=== PATIENT | female | born 1930 | race Two or more races ===

== ENCOUNTER 2016-08-14 11:05 | Emergency (ER) | payer MEDICARE, MEDICAID ==
[~2016-08-14] VITALS: Ht 165.1 cm; Wt 63.5 kg
[~2016-08-14 11:05] MED LIST: BUPR100T4 PO; CHOL20004 PO; DICL100G3 TOP; DOCU100C22 PO; ERGO50003 PO; FURO-145 PO; INSU100V10 SQ; LISI40TA4 PO; MEMA5TAB15 PO; METF10002 PO; METF500T4 PO; NYST5ORA TOP; RISP0.253 PO; RISP1TAB7 PO; SENN8.6T6 PO; SIMV40TA5 PO; [UNRECOGNIZED DRUG - CODE] PO
[2016-08-14 11:44] LABS: BASOPHILS % (AUTO) 0.7 % (0.0-2.0); DIFF TOTAL % 100 %; EOSINOPHILS # (AUTO) 0.1 /CMM (0.0-0.7); EOSINOPHILS % (AUTO) 1.6 % (0.0-6.0); HEMATOCRIT 31 % (33-45); HEMOGLOBIN 10.4 g/dL (11.5-14.8); LYMPHOCYTES # (AUTO) 2.1 /CMM (0.8-4.8); LYMPHOCYTES % (AUTO) 31.2 % (20.0-44.0); MEAN CORPUSCULAR HEMOGLOBIN 31 PG (26.0-33.0); MEAN CORPUSCULAR HGB CONC 33 g/dl (31.0-36.0); MEAN CORPUSCULAR VOLUME 92 fL (82-100); MONOCYTES # (AUTO) 0.5 /CMM (0.1-1.30); MONOCYTES % (AUTO) 7.8 % (2.0-12.0); NEUTROPHILS # (AUTO) 4.1 /CMM (1.8-8.9); NEUTROPHILS % (AUTO) 58.7 % (43.0-81.0); PLATELET COUNT (AUTO) 164 /CMM (150-450); RED BLOOD CELL COUNT(AUTO) 3.38 MIL/uL (4.0-5.2); WHITE BLOOD COUNT (AUTO) 6.8 K/uL (4.3-11.0)
[2016-08-14 12:03] LABS: ANION GAP 13 (5-14); CALCIUM, SERUM 9.4 mg/dL (8.5-10.1); CARBON DIOXIDE 28 mmol/L (21-32); CHLORIDE 101 mmol/L (98-107); CREATININE 1.1 mg/dL (0.6-1.3); GLUCOSE 178 mg/dL (74-106); POTASSIUM 4.8 mmol/L (3.5-5.1); SODIUM SERUM 137 mmol/L (136-145); UREA NITROGEN, BLOOD 21 mg/dL (7-18)
[2016-08-14 12:07] LABS: INR 1.02 (0.87-1.13); PROTHROMBIN TIME 10.7 SECS (9.5-12.7)
[2016-08-14 12:08] LABS: ALANINE AMINOTRANSFERASE 22 U/L (12-78); ALBUMIN 3.6 g/dL (3.4-5.0); ASPARTATE AMINOTRANSFERASE 21 U/L (15-37); BILIRUBIN,DIRECT 0.1 mg/dL (0.0-0.2); BILIRUBIN,TOTAL 0.2 mg/dL (0.2-1.0); INDIRECT BILIRUBIN 0.1 mg/dL (0.0-1.1); TOTAL PROTEIN, SERUM 7.2 g/dL (6.4-8.2)
[2016-08-14 12:11] LABS: TROPONIN I < 0.017 ng/mL (0.00-0.056)
[2016-08-14 14:15] VITALS: BP 145/74
== END 2016-08-14 14:16 | disposition home or self-care (01) ==
LOC: ER 11:06
DX: S09.90XA Unspecified injury of head, initial encounter (principal); E78.5 Hyperlipidemia, unspecified; E11.9 Type 2 diabetes mellitus without complications; E03.9 Hypothyroidism, unspecified; I10 Essential (primary) hypertension; F32.9 Major depressive disorder, single episode, unspecified; I70.0 Atherosclerosis of aorta; R51 Headache; R91.8 Other nonspecific abnormal finding of lung field; R79.1 Abnormal coagulation profile; Z79.82 Long term (current) use of aspirin; Z79.4 Long term (current) use of insulin; Z88.0 Allergy status to penicillin; W01.198A Fall on same level from slipping, tripping and stumbling with subsequent striking against other object, initial encounter; Y93.89 Activity, other specified; Y92.89 Other specified places as the place of occurrence of the external cause; Y99.9 Unspecified external cause status
CPT/HCPCS: 36415; 70450-TC; 71010-TC; 72125-TC; 80048-TC; 80076-TC; 84484-TC; 85025-TC; 85730-TC; A4606; Z7610

== ENCOUNTER 2016-09-24 13:19 | Inpatient (IN) | payer MEDICARE, MEDICAID ==
[~2016-09-24] VITALS: Ht 152.4 cm; Wt 60.8 kg
[2016-09-24] MEDS ORDERED: IV NS 0.9% 1,000 ML BAG IV ONE (13:30)
[2016-09-24] MEDS ORDERED: IV NS 0.9% 1,000 ML ONE (13:45)
[2016-09-24] MEDS ORDERED: IV SET PRIMARY PUMP SET 1 EA INFUS.SET MC ONE (13:45)
[2016-09-24] MEDS ORDERED: ACETAMINOPHEN 325 MG TABLET ONE (13:45)
[2016-09-24 13:49] LABS: BASOPHILS % (AUTO) 0.4 % (0.0-2.0); DIFF TOTAL % 100 %; EOSINOPHILS # (AUTO) 0.1 /CMM (0.0-0.7); EOSINOPHILS % (AUTO) 1.4 % (0.0-6.0); HEMATOCRIT 34 % (33-45); HEMOGLOBIN 10.8 g/dL (11.5-14.8); LYMPHOCYTES # (AUTO) 1.9 /CMM (0.8-4.8); LYMPHOCYTES % (AUTO) 38.7 % (20.0-44.0); MEAN CORPUSCULAR HEMOGLOBIN 30 PG (26.0-33.0); MEAN CORPUSCULAR HGB CONC 32 g/dl (31.0-36.0); MEAN CORPUSCULAR VOLUME 92 fL (82-100); MONOCYTES # (AUTO) 0.6 /CMM (0.1-1.30); MONOCYTES % (AUTO) 11.8 % (2.0-12.0); NEUTROPHILS # (AUTO) 2.4 /CMM (1.8-8.9); NEUTROPHILS % (AUTO) 47.7 % (43.0-81.0); PLATELET COUNT (AUTO) 131 /CMM (150-450); RED BLOOD CELL COUNT(AUTO) 3.66 MIL/uL (4.0-5.2)
[2016-09-24 13:50] LABS: KETONES,URINE Negative (NEGATIVE); LEUKOCYTE ESTERASE ,URINE Negative (NEGATIVE); PH,URINE 5.5 (5.0-8.0)
[2016-09-24] MEDS ORDERED: ACETAMINOPHEN ES 500 MG TABLET ONE (13:50)
[2016-09-24 13:51] LABS: ADD UA MICROSCOPIC YES
[2016-09-24 13:52] LABS: ADD URINE CULTURE NO
[2016-09-24] MEDS ORDERED: METF500T4 PO (13:54)
[2016-09-24 13:59] LABS: ANION GAP 10 (5-14); CALCIUM, SERUM 9.2 mg/dL (8.5-10.1); CARBON DIOXIDE 29 mmol/L (21-32); CHLORIDE 95 mmol/L (98-107); CREATININE 0.8 mg/dL (0.6-1.3); GLUCOSE 234 mg/dL (74-106); POTASSIUM 4.7 mmol/L (3.5-5.1); SODIUM SERUM 130 mmol/L (136-145); UREA NITROGEN, BLOOD 19 mg/dL (7-18)
[2016-09-24] MEDS ORDERED: ACETAMINOPHEN 325 MG TABLET PO ONE (14:00)
[2016-09-24 14:05] LABS: ALANINE AMINOTRANSFERASE 17 U/L (12-78); ALBUMIN 3.5 g/dL (3.4-5.0); ASPARTATE AMINOTRANSFERASE 18 U/L (15-37); BILIRUBIN,DIRECT 0.1 mg/dL (0.0-0.2); BILIRUBIN,TOTAL 0.2 mg/dL (0.2-1.0); INDIRECT BILIRUBIN 0.1 mg/dL (0.0-1.1); TOTAL PROTEIN, SERUM 7.2 g/dL (6.4-8.2)
[2016-09-24 14:07] LABS: TROPONIN I < 0.017 ng/mL (0.00-0.056)
[2016-09-24 14:30] VITALS: BP 154/72
[2016-09-24 16:00] VITALS: BP 154/72
[2016-09-24] MEDS ORDERED: CEFTRIAXONE 1GM BAG (ER ONLY) 1 GM/50 ML PIGGYBACK IV ONE (16:00)
[2016-09-24] MEDS ORDERED: ACETAMINOPHEN 325 MG TABLET PO PRN (16:00)
[2016-09-24] MEDS ORDERED: ACETAMINOPHEN SUSP 80 MG/0.8 ML BOTTLE PO PRN (16:00)
[2016-09-24] MEDS ORDERED: SIMVASTATIN 40 MG TABLET PO SCH ×2 (16:30→16:37)
[2016-09-24] MEDS ORDERED: SECONDARY IV SET 1 EA INFUS.SET MC ONE (16:53)
[2016-09-24] MEDS: ASPIRIN EC 81 MG TABLET.DR PO SCH (16:53)
[2016-09-24] MEDS: IV NS 0.9% 1,000 ML IV PRN (16:54)
[2016-09-24] MEDS: LISINOPRIL (20MG) 20 MG TABLET PO SCH (16:54)
[2016-09-24] MEDS: METFORMIN 500 MG TABLET PO SCH (16:55)
[2016-09-24] MEDS: CEFTRIAXONE 1 G in IV D5W 50 ML IV SCH (16:58)
[2016-09-24] MEDS: SIMVASTATIN 40 MG TABLET PO SCH (17:51)
[2016-09-24] MEDS: SENNOSIDES 8.6 MG TABLET PO SCH (17:52)
[2016-09-24 18:00] VITALS: BP 154/76
[2016-09-24 20:00] VITALS: BP 158/80
[2016-09-24] MEDS: INSULIN DETEMIR 100 UNIT/ML CARTRIDGE SQ SCH (21:39)
[2016-09-25 07:09] LABS: CALCIUM, SERUM 9.1 mg/dL (8.5-10.1); CREATININE 0.8 mg/dL (0.6-1.3); POTASSIUM 4.1 mmol/L (3.5-5.1)
[2016-09-25 08:00] VITALS: BP_SYST 144; BP_SYST 146; BP_DIAS 78; BP_DIAS 94
[2016-09-25] MEDS: LISINOPRIL (20MG) 20 MG TABLET PO SCH (09:05)
[2016-09-25] MEDS: METFORMIN 500 MG TABLET PO SCH ×2 (09:05→16:42)
[2016-09-25] MEDS: ASPIRIN EC 81 MG TABLET.DR PO SCH (09:05)
[2016-09-25] MEDS: INSULIN DETEMIR 100 UNIT/ML CARTRIDGE SQ SCH ×2 (09:18→21:00)
[2016-09-25] MEDS ORDERED: SECONDARY IV SET 1 EA INFUS.SET MC ONE (11:00)
[2016-09-25] MEDS: Magnesium 1GM/D5W 100ML PREMIX 100 ML IV SCH ×2 (11:11→12:23)
[2016-09-25] MEDS ORDERED: DEXTROSE 50%-WATER 50 ML DISP.SYRIN IV PRN (14:30)
[2016-09-25 16:00] VITALS: BP 148/53
[2016-09-25] MEDS: CEFTRIAXONE 1 G in IV D5W 50 ML IV SCH (16:40)
[2016-09-25] MEDS: IV NS 0.9% 1,000 ML IV PRN (16:42)
[2016-09-25] MEDS: BLOOD SUGAR DIAGNOSTIC 1 EACH STRIP IN SCH ×2 (16:42→23:47)
[2016-09-25] MEDS: INSULIN ASPART NOVOLOG 100 UNIT/ML CARTRIDGE SQ PRN (16:53)
[2016-09-25] MEDS: SIMVASTATIN 40 MG TABLET PO SCH (17:29)
[2016-09-25] MEDS: SENNOSIDES 8.6 MG TABLET PO SCH (17:29)
[2016-09-25 18:00] VITALS: BP 148/53
[2016-09-25 18:18] LABS: BASOPHILS % (AUTO) 0.6 % (0.0-2.0); DIFF TOTAL % 100 %; EOSINOPHILS # (AUTO) 0.1 /CMM (0.0-0.7); EOSINOPHILS % (AUTO) 1.5 % (0.0-6.0); HEMATOCRIT 32 % (33-45); HEMOGLOBIN 10.4 g/dL (11.5-14.8); LYMPHOCYTES # (AUTO) 2.2 /CMM (0.8-4.8); LYMPHOCYTES % (AUTO) 39.4 % (20.0-44.0); MEAN CORPUSCULAR HEMOGLOBIN 30 PG (26.0-33.0); MEAN CORPUSCULAR HGB CONC 33 g/dl (31.0-36.0); MEAN CORPUSCULAR VOLUME 93 fL (82-100); MONOCYTES # (AUTO) 0.4 /CMM (0.1-1.30); MONOCYTES % (AUTO) 7.6 % (2.0-12.0); NEUTROPHILS # (AUTO) 2.9 /CMM (1.8-8.9); NEUTROPHILS % (AUTO) 50.9 % (43.0-81.0); PLATELET COUNT (AUTO) 126 /CMM (150-450); RED BLOOD CELL COUNT(AUTO) 3.45 MIL/uL (4.0-5.2); WHITE BLOOD COUNT (AUTO) 5.7 K/uL (4.3-11.0)
[2016-09-25 20:00] VITALS: BP 162/67
[2016-09-26 06:35] LABS: CREATININE 0.8 mg/dL (0.6-1.3); POTASSIUM 4.2 mmol/L (3.5-5.1)
[2016-09-26 06:36] LABS: BASOPHILS % (AUTO) 0.6 % (0.0-2.0); DIFF TOTAL % 100 %; EOSINOPHILS # (AUTO) 0.1 /CMM (0.0-0.7); EOSINOPHILS % (AUTO) 1.8 % (0.0-6.0); HEMATOCRIT 33 % (33-45); HEMOGLOBIN 10.7 g/dL (11.5-14.8); LYMPHOCYTES # (AUTO) 2.3 /CMM (0.8-4.8); LYMPHOCYTES % (AUTO) 37.6 % (20.0-44.0); MEAN CORPUSCULAR HEMOGLOBIN 30 PG (26.0-33.0); MEAN CORPUSCULAR HGB CONC 32 g/dl (31.0-36.0); MEAN CORPUSCULAR VOLUME 93 fL (82-100); MONOCYTES # (AUTO) 0.6 /CMM (0.1-1.30); MONOCYTES % (AUTO) 9.2 % (2.0-12.0); NEUTROPHILS # (AUTO) 3.2 /CMM (1.8-8.9); NEUTROPHILS % (AUTO) 50.8 % (43.0-81.0); PLATELET COUNT (AUTO) 141 /CMM (150-450); RED BLOOD CELL COUNT(AUTO) 3.54 MIL/uL (4.0-5.2); WHITE BLOOD COUNT (AUTO) 6.2 K/uL (4.3-11.0)
[2016-09-26] MEDS: BLOOD SUGAR DIAGNOSTIC 1 EACH STRIP IN SCH ×4 (07:56→23:02)
[2016-09-26] MEDS: INSULIN ASPART NOVOLOG 100 UNIT/ML CARTRIDGE SQ PRN ×4 (07:58→23:00)
[2016-09-26 08:00] VITALS: BP 143/70
[2016-09-26] MEDS: LISINOPRIL (20MG) 20 MG TABLET PO SCH (09:27)
[2016-09-26] MEDS: METFORMIN 500 MG TABLET PO SCH ×2 (09:28→17:38)
[2016-09-26] MEDS: ASPIRIN EC 81 MG TABLET.DR PO SCH (09:28)
[2016-09-26] MEDS: INSULIN DETEMIR 100 UNIT/ML CARTRIDGE SQ SCH ×2 (09:29→23:00)
[2016-09-26] MEDS: LamoTRIgine 25 MG TABLET PO SCH (12:00)
[2016-09-26 16:00] VITALS: BP 134/69
[2016-09-26] MEDS ORDERED: buPROPion 100 MG TABLET PO SCH (17:00)
[2016-09-26] MEDS: SIMVASTATIN 40 MG TABLET PO SCH (17:34)
[2016-09-26] MEDS: SENNOSIDES 8.6 MG TABLET PO SCH (17:34)
[2016-09-26] MEDS: CEFTRIAXONE 1 G in IV D5W 50 ML IV SCH (17:35)
[2016-09-26 20:00] VITALS: BP 171/86
[2016-09-26] MEDS ORDERED: BENZTROPINE MESYLATE (1 MG) 1 MG TABLET PO SCH (22:00)
[2016-09-26] MEDS ORDERED: risperiDONE 1 MG TABLET PO SCH (22:00)
[2016-09-27 06:41] LABS: CALCIUM, SERUM 9.1 mg/dL (8.5-10.1); CREATININE 0.8 mg/dL (0.6-1.3)
[2016-09-27] MEDS: BLOOD SUGAR DIAGNOSTIC 1 EACH STRIP IN SCH ×3 (07:19→18:16)
[2016-09-27 08:00] VITALS: BP 147/72
[2016-09-27] MEDS: ASPIRIN EC 81 MG TABLET.DR PO SCH (08:40)
[2016-09-27] MEDS: METFORMIN 500 MG TABLET PO SCH ×2 (08:40→18:16)
[2016-09-27] MEDS: LamoTRIgine 25 MG TABLET PO SCH (08:40)
[2016-09-27] MEDS: buPROPion 100 MG TABLET PO SCH ×2 (08:40→14:38)
[2016-09-27] MEDS: LISINOPRIL (20MG) 20 MG TABLET PO SCH (08:40)
[2016-09-27] MEDS: INSULIN DETEMIR 100 UNIT/ML CARTRIDGE SQ SCH (08:41)
[2016-09-27] MEDS: INSULIN ASPART NOVOLOG 100 UNIT/ML CARTRIDGE SQ PRN (12:45)
[2016-09-27 16:00] VITALS: BP 115/67
[2016-09-27] MEDS: CEFTRIAXONE 1 G in IV D5W 50 ML IV SCH (16:46)
[2016-09-27] MEDS: SIMVASTATIN 40 MG TABLET PO SCH (18:16)
[2016-09-27] MEDS: SENNOSIDES 8.6 MG TABLET PO SCH (18:16)
== END 2016-09-27 19:30 | DRG 689 ==
LOC: ER 13:23 → MEDSG2 14:44
PROVIDERS: ADMIT Internal Medicine; ATTEND Internal Medicine
DX: N39.0 Urinary tract infection, site not specified (principal); G93.40 Encephalopathy, unspecified; F02.81 Dementia in other diseases classified elsewhere, unspecified severity, with behavioral disturbance; R64 Cachexia; R10.9 Unspecified abdominal pain; G30.9 Alzheimer's disease, unspecified; E78.5 Hyperlipidemia, unspecified; E11.9 Type 2 diabetes mellitus without complications; I25.10 Atherosclerotic heart disease of native coronary artery without angina pectoris; I10 Essential (primary) hypertension; E03.9 Hypothyroidism, unspecified; F29 Unspecified psychosis not due to a substance or known physiological condition; D63.8 Anemia in other chronic diseases classified elsewhere; Z79.82 Long term (current) use of aspirin; Z90.49 Acquired absence of other specified parts of digestive tract; F39 Unspecified mood [affective] disorder; F25.9 Schizoaffective disorder, unspecified; N12 Tubulo-interstitial nephritis, not specified as acute or chronic
CPT/HCPCS: 36415; 71010-TC; 80048-TC; 80061-TC; 80076-TC; 81000-TC; 82962-TC; 83690-TC; 83735-TC; 84100-TC; 84484-TC; 85025-TC; 87040-TC; A4606; J0696; J1815; J3475; J7030; J7060; Z7610

== ENCOUNTER 2016-12-09 10:28 | Emergency (ER) | payer MEDICARE, MEDICAID ==
[~2016-12-09] VITALS: Ht 152.4 cm; Wt 47.6 kg
[~2016-12-09 10:28] MED LIST changes: -BUPR100T4 PO; -CHOL20004 PO; -DICL100G3 TOP; -DOCU100C22 PO; -ERGO50003 PO; -MEMA5TAB15 PO; -METF500T4 PO; -NYST5ORA TOP; -RISP0.253 PO; -RISP1TAB7 PO
--- NOTE | 2016-12-09 10:44 | NUR ---
AIRPLANE COVER MAKER AT BEDSIDE COLLECTED BLOOD SAMPLE
[2016-12-09 10:47] LABS: BASOPHILS % (AUTO) 0.5 % (0.0-2.0); EOSINOPHILS # (AUTO) 0.1 /CMM (0.0-0.7); EOSINOPHILS % (AUTO) 1.4 % (0.0-6.0); HEMATOCRIT 32 % (33-45); HEMOGLOBIN 10.9 g/dL (11.5-14.8); LYMPHOCYTES % (AUTO) 26.7 % (20.0-44.0); MEAN CORPUSCULAR HEMOGLOBIN 31 PG (26.0-33.0); MEAN CORPUSCULAR HGB CONC 34 g/dl (31.0-36.0); MEAN CORPUSCULAR VOLUME 90 fL (82-100); MONOCYTES # (AUTO) 0.7 /CMM (0.1-1.30); NEUTROPHILS # (AUTO) 4.5 /CMM (1.8-8.9); NEUTROPHILS % (AUTO) 62.4 % (43.0-81.0); PLATELET COUNT (AUTO) 139 /CMM (150-450); RED BLOOD CELL COUNT(AUTO) 3.51 MIL/uL (4.0-5.2); WHITE BLOOD COUNT (AUTO) 7.3 K/uL (4.3-11.0)
[2016-12-09 10:57] LABS: CALCIUM, SERUM 9.2 mg/dL (8.5-10.1); CREATININE 0.9 mg/dL (0.6-1.3); POTASSIUM 4.7 mmol/L (3.5-5.1)
--- NOTE | 2016-12-09 11:07 | NUR ---
MED RESPONSE CALLED FOR PT DISCHARGE ETA GIVEN: 20 MINS
--- NOTE | 2016-12-09 11:28 | NUR ---
REPORT GIVEN TO Fransico DYE EMT FOR TRANSPORT TO [facility]
[2016-12-09 11:34] VITALS: BP 155/67
== END 2016-12-09 11:37 | disposition home or self-care (01) ==
LOC: ER 10:30
DX: J02.9 Acute pharyngitis, unspecified (principal); E03.9 Hypothyroidism, unspecified; E11.9 Type 2 diabetes mellitus without complications; E78.5 Hyperlipidemia, unspecified; F32.9 Major depressive disorder, single episode, unspecified; I10 Essential (primary) hypertension; Z79.4 Long term (current) use of insulin; Z79.82 Long term (current) use of aspirin; Z88.0 Allergy status to penicillin
CPT/HCPCS: 36415; 71010; 80048; 85025; 99285; A4606; Z7610

== ENCOUNTER 2017-05-01 15:48 | Inpatient (IN) | payer MEDICARE, MEDICAID ==
[~2017-05-01] VITALS: Ht 162.6 cm; Wt 57.2 kg
[2017-05-01] MEDS ORDERED: IV NS 0.9% 500 ML BAG IV ONE (16:00)
[2017-05-01] MEDS ORDERED: ONDANSETRON HCL/PF 4 MG/2 ML VIAL IVP ONE (16:00)
--- NOTE | 2017-05-01 16:00 | NUR ---
PT TO ED ROOM 03. ABDOMINAL PAIN WITH NAUSEA AND VOMITING X 1 DAY. A/A/O x 1. VS WNL. SIDE RAIS LUP. HOB ELEVATED. CONECTED TO LEXA. SEEN AND EVALUATED BY ED PROVIDER.
[2017-05-01] MEDS ORDERED: ONDANSETRON HCL/PF 4 MG/2 ML VIAL ONE (16:21)
[2017-05-01 16:27] LABS: APPEARANCE,URINE CLOUDY (CLEAR); BILIRUBIN,URINE NEGATIVE (NEGATIVE); BLOOD, URINE TRACE-INTA Ery/uL (NEGATIVE); COLOR,URINE YELLOW (YELLOW); KETONES,URINE TRACE (NEGATIVE); LEUKOCYTE ESTERASE ,URINE 3+ (NEGATIVE); NITRITE, URINE NEGATIVE (NEGATIVE); PROTEIN,URINE 2+ mg/dl (NEGATIVE); UGLUCOSE NEGATIVE (NEGATIVE)
[2017-05-01] MEDS ORDERED: METF500T4 PO (16:28)
[2017-05-01] MEDS ORDERED: PRAV20TA4 PO (16:28)
[2017-05-01] MEDS ORDERED: BENZ0.5T3 PO (16:28)
[2017-05-01] MEDS ORDERED: INSU100V7 SQ (16:28)
[2017-05-01] MEDS ORDERED: PANT40TA4 PO (16:28)
[2017-05-01] MEDS ORDERED: QUET25TA PO (16:28)
[2017-05-01] MEDS ORDERED: MEMA10TA PO (16:28)
[2017-05-01] MEDS ORDERED: HYDR-4076 PO (16:28)
[2017-05-01] MEDS ORDERED: DOCU-25 PO (16:28)
[2017-05-01] MEDS ORDERED: CHOL400T11 PO (16:28)
[2017-05-01] MEDS ORDERED: TRAM50TA2 PO (16:28)
[2017-05-01] MEDS ORDERED: TRAZ-144 PO (16:28)
[2017-05-01] MEDS ORDERED: CYAN500T4 PO (16:28)
[2017-05-01] MEDS ORDERED: ACET-868 PO (16:28)
[2017-05-01 16:30] LABS: BASOPHILS % (AUTO) 0.3 % (0.0-2.0); CALCIUM, SERUM 9.6 mg/dL (8.5-10.1); CARBON DIOXIDE 28 mmol/L (21-32); CHLORIDE 102 mmol/L (98-107); EOSINOPHILS # (AUTO) 0.1 /CMM (0.0-0.7); EOSINOPHILS % (AUTO) 1.1 % (0.0-6.0); GLUCOSE 117 mg/dL (74-106); HEMATOCRIT 34 % (33-45); HEMOGLOBIN 11.3 g/dL (11.5-14.8); LYMPHOCYTES # (AUTO) 2.6 /CMM (0.8-4.8); LYMPHOCYTES % (AUTO) 32.7 % (20.0-44.0); MEAN CORPUSCULAR HEMOGLOBIN 29 PG (26.0-33.0); MEAN CORPUSCULAR HGB CONC 33 g/dl (31.0-36.0); MEAN CORPUSCULAR VOLUME 88 fL (82-100); MONOCYTES # (AUTO) 0.6 /CMM (0.1-1.30); MONOCYTES % (AUTO) 8.1 % (2.0-12.0); NEUTROPHILS # (AUTO) 4.5 /CMM (1.8-8.9); NEUTROPHILS % (AUTO) 57.8 % (43.0-81.0); PLATELET COUNT (AUTO) 143 /CMM (150-450); POTASSIUM 3.8 mmol/L (3.5-5.1); RDW COEFFICIENT OF VARIATION 14.7 (11.5-15.0); RED BLOOD CELL COUNT(AUTO) 3.84 MIL/uL (4.0-5.2); SODIUM SERUM 139 mmol/L (136-145); UREA NITROGEN, BLOOD 19 mg/dL (7-18); WHITE BLOOD COUNT (AUTO) 7.9 K/uL (4.3-11.0)
[2017-05-01 16:31] LABS: RBC,URINE 0-2 /HPF (0-2)
[2017-05-01 16:32] LABS: BACTERIA,URINE Moderate /HPF (None Seen); SQUAMOUS EPITHELIAL CELL,UR Few /HPF (None Seen); WBC,URINE 21-50 /HPF (0-3)
[2017-05-01 16:35] LABS: ALANINE AMINOTRANSFERASE 17 U/L (12-78); ALBUMIN 3.8 g/dL (3.4-5.0); ALKALINE PHOSPHATASE 102 U/L (46-116); ASPARTATE AMINOTRANSFERASE 21 U/L (15-37); BILIRUBIN,DIRECT 0.1 mg/dL (0.0-0.2); BILIRUBIN,TOTAL 0.3 mg/dL (0.2-1.0); LIPASE 128 U/L (73-393); TOTAL PROTEIN, SERUM 7.8 g/dL (6.4-8.2)
[2017-05-01 16:39] LABS: TROPONIN I < 0.017 ng/mL (0.00-0.056)
[2017-05-01] MEDS ORDERED: CT SWABBABLE VALVE TRANS SET 1 EA INFUS.SET MC ONE (16:51)
[2017-05-01] MEDS ORDERED: IOHEXOL-300 100 ML VIAL IV ONE (16:51)
[2017-05-01] MEDS ORDERED: IV NS 0.9% 250 ML IV ONE (16:51)
[2017-05-01] MEDS ORDERED: LEVOFLOXACIN 750 MG /D5W 150ML 150 ML IV ONE ×2 (17:30)
--- NOTE | 2017-05-01 17:48 | NUR ---
PAGED DR DAVIS.
--- NOTE | 2017-05-01 18:04 | NUR ---
ms room 327-2
--- NOTE | 2017-05-01 18:15 | NUR ---
REPORT GIVEN TO NURSE PORRAS MS 327-2 FOR TOBIAS.
--- NOTE | 2017-05-01 18:22 | NUR ---
JUSTIN DAVIS [phone] OPT 1, 7,
--- NOTE | 2017-05-01 19:05 | NUR ---
RN NOTES PT ADMITTED TO UNIT @ 1845H VIA RNEY ALERT AND ORIENTED X2, VERBALLY RESPONSIVE WITH NO COMPLAINTS OF ABDOMINAL PAIN , N & v AT THIS TIME. PT WITH CHIEF COMPLAINTS OF ABDOMINAL PAIN AND N &V X 1 DAY WITH SIGNIFICANT DIAGNOSIS OF DEMENTIA, HTN, HYPERLIPEDEMIA, DM AND HYPOTHYROIDISM. PT ON ROOM AIR, BREATHING EVEN WITH NO SOB NOTED. PT HAS RIGHT WRIST G#18 PIV INTACT AND PATENT. V/S TAKEN AND REPORTED TO ASSISTANT ENGINEER NURSE FOR THE RESULTS. SKIN IS INTACT WITH HEMATOMA NOTED TO LEFT HAND. PLACED BED AT LOWEST POSITION AND LOCKED WITH SIDERAILS UP X 2. CALL LIGHT WITHIN REACH. MD MADE AWARE OF PT'S ADMISSION TO UNIT. ORDERS TO FOLLOW-UP. ENDORSED TO ASSISTANT ENGINEER NURSE TO CONTINUE WITH ADMISSION PROCESS.
[2017-05-01 19:35] VITALS: BP 145/85
[2017-05-01 20:00] VITALS: BP 164/82
--- NOTE | 2017-05-01 20:00 | NUR ---
RECEIVED PATIENT LAYING IN BED, RECENTLY NEW ADMIT TO THIS UNIT. A & O X 1-2. NO N/V, NO ABDOMINAL PAIN NOTED. IV ACCESS TO RIGHT WRIST, INTACT PATENT. ON PUREE DIET. WILL START ON IV FLUIDS ORDERED. INCONTINENT OF B & BM. BODY ASSESSMENT DONE & DOCUMENTED. TELUGU SPEAKING WITH FORGETFULNESS. BED IN LOW LOCKED POSITION. CALL LIGHT IN PLACE. WILL CONTINUE TO MONITOR CLOSELY FOR ANY CHANGES IN HEALTH CONDITION.
[2017-05-01] MEDS: IV NS 0.9% 1,000 ML IV PRN (22:02)
[2017-05-01] MEDS: ACETAMINOPHEN 325 MG TABLET PO PRN (22:29)
--- NOTE | 2017-05-01 22:29 | NUR ---
MS RN NOTES PATIENT HAD C/O HEADACHE & GENERALIZED BODYACHE, PRN TYLENOL GIVEN ORDERED. WILL REASSESS FO EFFECTIVENESS.
[2017-05-01] MEDS: BENZTROPINE MESYLATE (1 MG) 1 MG TABLET PO SCH (22:35)
[2017-05-01] MEDS: QUETIAPINE FUMARATE 25 MG TABLET PO SCH (22:36)
[2017-05-01] MEDS: ATORVASTATIN 10 MG TABLET PO SCH (22:36)
[2017-05-01] MEDS: SENNOSIDES 8.6 MG TABLET PO SCH (22:36)
[2017-05-01] MEDS: TRAZODONE 50 MG TABLET PO SCH (22:36)
[2017-05-01] MEDS: ENOXAPARIN SODIUM 30 MG/0.3 ML DISP.SYRIN SQ SCH (22:41)
[2017-05-01] MEDS: CEFTRIAXONE 1 G in IV D5W 50 ML IV SCH (22:54)
[2017-05-01] MEDS: INSULIN DETEMIR 100 UNIT/ML CARTRIDGE SQ SCH (23:01)
--- NOTE | 2017-05-02 01:00 | NUR ---
MS RN NOTES PATIENT NOTED TO BE SLEEPING COMFORTABLY IN SEMI PLUMMER POSITION. WILL CONTINUE TO MONITOR.
[2017-05-02 04:00] VITALS: BP 137/63
--- NOTE | 2017-05-02 06:25 | NUR ---
MS RN NOTES PATIENT SLEPT MOST OF THE NIGHT. A & O X 1-2 WITH EPISODES OF CONFUSION. NO C/O ABDOMINAL PAIN, ON BEDREST DUE TO WEAKNESS. NO ACUTE DISTRESS OR DISCOMFORT NOTED. MILD NAUSEA NOTED, ELEVATED HOB & WAS EFFECTIVE. NO N/V NOTED AFTER THAT. IV ACCESS TO RIGHT WRIST, RUNNING WITH NS AT 75 ML/HR. ASSISTED WITH CARE. ALL NEEDS ATTENDED & MET. NO WORSENING SYMPTOMS NOTED. BED IN LOW LOCKED POSITION. CALL LIGHT WITHIN REACH. WILL ENDORSE TO AM SHIFT.
[2017-05-02 07:22] LABS: BASOPHILS % (AUTO) 0.2 % (0.0-2.0); EOSINOPHILS % (AUTO) 0.4 % (0.0-6.0); HEMATOCRIT 31 % (33-45); HEMOGLOBIN 10.3 g/dL (11.5-14.8); LYMPHOCYTES # (AUTO) 3.1 /CMM (0.8-4.8); LYMPHOCYTES % (AUTO) 32.3 % (20.0-44.0); MEAN CORPUSCULAR HEMOGLOBIN 30 PG (26.0-33.0); MEAN CORPUSCULAR HGB CONC 33 g/dl (31.0-36.0); MEAN CORPUSCULAR VOLUME 89 fL (82-100); MONOCYTES # (AUTO) 0.7 /CMM (0.1-1.30); MONOCYTES % (AUTO) 7.2 % (2.0-12.0); NEUTROPHILS # (AUTO) 5.8 /CMM (1.8-8.9); NEUTROPHILS % (AUTO) 59.9 % (43.0-81.0); PLATELET COUNT (AUTO) 118 /CMM (150-450); RDW COEFFICIENT OF VARIATION 14.6 (11.5-15.0); RED BLOOD CELL COUNT(AUTO) 3.49 MIL/uL (4.0-5.2); WHITE BLOOD COUNT (AUTO) 9.7 K/uL (4.3-11.0)
--- NOTE | 2017-05-02 07:30 | NUR ---
RN OPENING NOTES RECEIVE PT. IN BED A&OX1-2, CONFUSED. BREATHING UNLABORED AND EVENLY ON ROOM AIR. NO S/S OF ACUTE DISTRESS. IV FLUIDS RUNNING AT 75 ML/HR. BED IS IN LOWEST LOCKED POSITION, 2 SIDE RAILS UP, AND INSTRUCTED PT. TO USE CALL LIGHT WITHIN REACH. WILL CONTINUE TO ASSESS AND MONITOR.
[2017-05-02 07:31] LABS: CALCIUM, SERUM 8.7 mg/dL (8.5-10.1); CARBON DIOXIDE 25 mmol/L (21-32); CHLORIDE 104 mmol/L (98-107); CREATININE 1.1 mg/dL (0.6-1.3); GLUCOSE 107 mg/dL (74-106); POTASSIUM 4.9 mmol/L (3.5-5.1); SODIUM SERUM 137 mmol/L (136-145); UREA NITROGEN, BLOOD 19 mg/dL (7-18)
[2017-05-02 08:00] VITALS: BP 112/61
[2017-05-02] MEDS: PANTOPRAZOLE 40 MG TABLET.DR PO SCH (08:39)
[2017-05-02] MEDS: METFORMIN 500 MG TABLET PO SCH ×2 (09:00→18:09)
[2017-05-02] MEDS ORDERED: TRAMADOL HCL 50 MG TABLET PO PRN (09:00)
[2017-05-02] MEDS: CHOLECALCIFEROL (VITAMIN D 3) 400 UNIT TABLET PO SCH (09:00)
[2017-05-02] MEDS: LISINOPRIL (20MG) 20 MG TABLET PO SCH (09:00)
[2017-05-02] MEDS: CYANOCOBALAMIN 500 MCG TABLET PO SCH (09:00)
[2017-05-02] MEDS: BENZTROPINE MESYLATE (1 MG) 1 MG TABLET PO SCH ×2 (09:00→18:09)
[2017-05-02] MEDS: MEMANTINE HCL 5 MG TABLET PO SCH (09:00)
[2017-05-02] MEDS: ASPIRIN EC 81 MG TABLET.DR PO SCH (09:00)
[2017-05-02] MEDS ORDERED: BENZTROPINE MESYLATE (1 MG) 1 MG TABLET PO SCH (09:00)
[2017-05-02] MEDS ORDERED: ACETAMINOPHEN 325 MG TABLET PO PRN (09:00)
--- NOTE | 2017-05-02 10:22 | NUR ---
RN NOTES PT. PO MEDICATIONS WAS NOT ADMINISTERED DUE TO PT. AWAITING A SWALLOW EVALUATION.
[2017-05-02] MEDS: INSULIN DETEMIR 100 UNIT/ML CARTRIDGE SQ SCH ×2 (10:37→21:34)
[2017-05-02] MEDS: TRAMADOL HCL 50 MG TABLET PO PRN (12:06)
[2017-05-02] MEDS: IV NS 0.9% 1,000 ML IV PRN (13:36)
[2017-05-02 16:00] VITALS: BP 116/58
--- NOTE | 2017-05-02 16:52 | NUR ---
Patient resides at [facility] [phone]. Per Leonela at the [facility], patient ambulates with her wheelchair as the walker, she requires min-mod assist with adl's. She is currently on service with [facility] [phone]. Current plan is to return to the [facility] once discharge. Addendum: 05/02/17 at 1715 by TAWANNA MARTELL RN Amended: Links added.
--- NOTE | 2017-05-02 19:20 | NUR ---
MS/RN NOTES RECEIVED PT. LYING IN BED. AWAKE, ALERT AND ORIENTED X 1-2 WITH PERIODS OF CONFUSION NOTED. BREATHING EVEN AND UNLABORED ON ROOM AIR. NO SOB, RESPIRATORY DISTRESS OR COMPLAINTS OF PAIN NOTED AT THIS TIME. PT. WITH RIGHT WRIST 18 GAUGE PERIPHERAL IV PRESENT, PATENT AND INTACT ADMINISTERING TO PT. NS @ 75 ML/HR. BED LOCKED AND IN LOWEST POSITION. SIDE RAILS UP X3, BED ALARM ON, CALL LIGHT WITHIN REACH, WILL CONTINUE TO MONITOR.
--- NOTE | 2017-05-02 19:45 | NUR ---
RN CLOSING NOTES PT. IN BED A&OX1-2, CONFUSED. BREATHING UNLABORED AND EVENLY ON ROOM AIR. NO S/S OF ACUTE DISTRESS. IV FLUIDS NEAR BED SIDE. BED IS IN LOWEST LOCKED POSITION, 2 SIDE RAILS UP, AND INSTRUCTED PT. TO USE CALL LIGHT WITHIN REACH. WILL ENDORSE REPORT TO NURSE.
[2017-05-02 20:00] VITALS: BP 111/51
[2017-05-02] MEDS: ENOXAPARIN SODIUM 30 MG/0.3 ML DISP.SYRIN SQ SCH (21:33)
[2017-05-02] MEDS: ATORVASTATIN 10 MG TABLET PO SCH (21:34)
[2017-05-02] MEDS: QUETIAPINE FUMARATE 25 MG TABLET PO SCH (21:34)
[2017-05-02] MEDS: TRAZODONE 50 MG TABLET PO SCH (21:34)
[2017-05-02] MEDS: SENNOSIDES 8.6 MG TABLET PO SCH (21:35)
[2017-05-02] MEDS: CEFTRIAXONE 1 G in IV D5W 50 ML IV SCH (21:35)
[2017-05-02] MEDS ORDERED: SENNOSIDES 8.6 MG TABLET PO SCH (22:00)
[2017-05-02] MEDS ORDERED: PRAVASTATIN SODIUM 20 MG TABLET PO SCH (22:00)
[2017-05-02] MEDS ORDERED: QUETIAPINE FUMARATE 25 MG TABLET PO SCH (22:00)
[2017-05-02] MEDS ORDERED: TRAZODONE 50 MG TABLET PO SCH (22:00)
--- NOTE | 2017-05-03 06:12 | NUR ---
MS/RN NOTES PT. IS LYING IN BED RESTING. BREATHING EVEN AND UNLABORED ON ROOM AIR. NO SOB, RESPIRATORY DISTRESS OR COMPLAINTS OF PAIN NOTED AT THIS TIME. PT. WITH RIGHT WRIST 18 GAUGE PERIPHERAL IV PRESENT, PATENT AND INTACT ADMINISTERING TO PT. NS @ 75 ML/HR. ALL PT. NEEDS MET. ALL DUE MEDICATIONS ADMINISTERED. PT. OFFLOADED, TURNED AND REPOSITIONED Q2H AND NEEDED. BED LOCKED AND IN LOWEST POSITION. SIDE RAILS UP X3, BED ALARM ON, CALL LIGHT WITHIN REACH, WILL ENDORSE TO DAYSHIFT NURSE FOR CONTINUITY OF CARE.
--- NOTE | 2017-05-03 07:30 | NUR ---
received pt. alert and oriented x 3 .no complaints offered,f/c to grv. drainage.vs stable. Addendum: 05/03/17 at 2003 by KATERINA DELUCA RN above info not correct,info to be on different pt.
--- NOTE | 2017-05-03 07:30 | NUR ---
received pt. in am alert and oriented x1-2.
[2017-05-03 08:00] VITALS: BP 131/60
[2017-05-03] MEDS: CHOLECALCIFEROL (VITAMIN D 3) 400 UNIT TABLET PO SCH (10:02)
[2017-05-03] MEDS: METFORMIN 500 MG TABLET PO SCH ×2 (10:02→18:05)
[2017-05-03] MEDS: PANTOPRAZOLE 40 MG TABLET.DR PO SCH (10:02)
[2017-05-03] MEDS: CYANOCOBALAMIN 500 MCG TABLET PO SCH (10:03)
[2017-05-03] MEDS: ASPIRIN EC 81 MG TABLET.DR PO SCH (10:03)
[2017-05-03] MEDS: BENZTROPINE MESYLATE (1 MG) 1 MG TABLET PO SCH ×2 (10:03→18:04)
[2017-05-03] MEDS: MEMANTINE HCL 5 MG TABLET PO SCH (10:03)
[2017-05-03] MEDS: INSULIN DETEMIR 100 UNIT/ML CARTRIDGE SQ SCH ×2 (10:05→20:35)
[2017-05-03] MEDS: LISINOPRIL (20MG) 20 MG TABLET PO SCH (10:13)
[2017-05-03] MEDS: TRAMADOL HCL 50 MG TABLET PO PRN (11:13)
--- NOTE | 2017-05-03 11:13 | NUR ---
given ultram for c/o headache.
[2017-05-03] MEDS: IV NS 0.9% 1,000 ML IV PRN (11:25)
--- NOTE | 2017-05-03 12:00 | NUR ---
pt. placed on low air loss bed. Addendum: 05/03/17 at 2004 by KATERINA DELUCA RN above info incorrect.
--- NOTE | 2017-05-03 13:00 | NUR ---
due to having a bm dressing buttocks chg. again. Addendum: 05/03/17 at 2005 by KATERINA DELUCA RN above info incorrect.
[2017-05-03 16:00] VITALS: BP 120/65
--- NOTE | 2017-05-03 17:30 | NUR ---
dr. marshall in to see pt.
[2017-05-03 20:00] VITALS: BP 133/80
--- NOTE | 2017-05-03 20:00 | NUR ---
MS/RN OPENING NOTES PATIENT IN HOB ELEVATED, RESTING COMFORTABLY IN BED. SKIN WARM TO TOUCH BUT PALE. NO BLEEDING OXYGENATION IN ROOM AIR AT 97%. WILL CONTINUE TO PROVIDE CARE.
[2017-05-03] MEDS: ENOXAPARIN SODIUM 30 MG/0.3 ML DISP.SYRIN SQ SCH (20:43)
[2017-05-03] MEDS: CEFTRIAXONE 1 G in IV D5W 50 ML IV SCH (21:03)
[2017-05-03] MEDS: TRAZODONE 50 MG TABLET PO SCH (21:13)
[2017-05-03] MEDS: ATORVASTATIN 10 MG TABLET PO SCH (21:13)
[2017-05-03] MEDS: QUETIAPINE FUMARATE 25 MG TABLET PO SCH (21:13)
[2017-05-03] MEDS: SENNOSIDES 8.6 MG TABLET PO SCH (21:14)
[2017-05-03 23:16] VITALS: BP 113/66
[2017-05-03] MEDS: ACETAMINOPHEN 325 MG TABLET PO PRN (23:57)
[2017-05-04] MEDS: IV NS 0.9% 1,000 ML IV PRN (06:26)
[2017-05-04] MEDS: TRAMADOL HCL 50 MG TABLET PO PRN ×2 (06:34→12:41)
--- NOTE | 2017-05-04 06:34 | NUR ---
ms/rn notes pain observe and verbalized on the head and while being change for adls, observed moaning and grimace to give as needed pain medication [id number] po w/ apple sauce.
--- NOTE | 2017-05-04 06:52 | NUR ---
327-2 PATIENT ABLE TO SLEEP DURING THE NIGHT, PAIN MEDICATION GIVEN PATIENT OBSERVED AND VERBALIZE HEADACHE WHILE BEING CHANGED, PAIN RELIEVE VERBALIZED. ABLE TO TOLERATE MEDICATION W/ APPLE SAUCE. BED ALRM ON FOR SAFETY, WILL ENDORSE TO AM RN FOR TOBIAS.
--- NOTE | 2017-05-04 07:30 | NUR ---
MS/RN OPENING NOTE PATIENT RECEIVED IN BED IN STABLE CONDITION. A/O X 1. NAURUAN SPEAKING. NO SIGNS OF ACUTE DISTRESS. NO COMPLAIN OF PAIN OR DISCOMFORT. ALL NEEDS ATTENDED TO. CALL LIGHT WITHIN REACH. WILL CONTINUE TO MONITOR TO ENSURE SAFETY.
[2017-05-04 08:00] VITALS: BP 162/76
[2017-05-04 08:22] LABS: CALCIUM, SERUM 8.2 mg/dL (8.5-10.1); CARBON DIOXIDE 27 mmol/L (21-32); CHLORIDE 108 mmol/L (98-107); CREATININE 0.8 mg/dL (0.6-1.3); GLUCOSE 105 mg/dL (74-106); SODIUM SERUM 141 mmol/L (136-145); UREA NITROGEN, BLOOD 13 mg/dL (7-18)
[2017-05-04] MEDS: CHOLECALCIFEROL (VITAMIN D 3) 400 UNIT TABLET PO SCH (08:38)
[2017-05-04] MEDS: PANTOPRAZOLE 40 MG TABLET.DR PO SCH (08:39)
[2017-05-04] MEDS: ASPIRIN EC 81 MG TABLET.DR PO SCH (08:39)
[2017-05-04] MEDS: METFORMIN 500 MG TABLET PO SCH ×2 (08:39→16:51)
[2017-05-04] MEDS: MEMANTINE HCL 5 MG TABLET PO SCH (08:40)
[2017-05-04] MEDS: BENZTROPINE MESYLATE (1 MG) 1 MG TABLET PO SCH ×2 (08:40→16:51)
[2017-05-04] MEDS: LISINOPRIL (20MG) 20 MG TABLET PO SCH (08:40)
[2017-05-04] MEDS: CYANOCOBALAMIN 500 MCG TABLET PO SCH (08:40)
[2017-05-04] MEDS: INSULIN DETEMIR 100 UNIT/ML CARTRIDGE SQ SCH ×2 (08:42→21:22)
[2017-05-04 16:00] VITALS: BP 142/61
--- NOTE | 2017-05-04 16:00 | NUR ---
MS/RN SEEN BY DR DAVIS PATIENT SEEN BY DR DAVIS WITH NEW ORDER OF ACCUCHECK BEFORE BREAKFAST WITH NO SLIDING SCALE COVERAGE.
[2017-05-04] MEDS: ACETAMINOPHEN 325 MG TABLET PO PRN (17:58)
--- NOTE | 2017-05-04 18:17 | NUR ---
MS/RN CLOSING NOTE PATIENT IN BED IN STABLE CONDITION. A/O X 2. NO SIGNS OF ACUTE DISTRESS. NO COMPLAIN OF PAIN OF DISCOMFORT. ALL NEEDS ATTENDED TO. CALL LIGHT WITHIN REACH. WILL ENDORSE TO NEXT SHIFT FOR CONTINUITY OF CARE.
[2017-05-04 20:00] VITALS: BP_SYST 137; BP_SYST 156; BP_DIAS 100; BP_DIAS 117
--- NOTE | 2017-05-04 20:36 | NUR ---
MS/RN OPENING NOTES PATIENT IN BED, RESTING COMFORTABLY IN BED, NO PAIN OBSERVED AND VERBALIZED. NO GUARDING. FLUID PROVIDED. SKIN WARM TO TOUCH.WILL CONTINUE TO MONITOR AND PROVIDE CARE.
[2017-05-04 21:05] VITALS: BP 137/117
[2017-05-04] MEDS: CEFTRIAXONE 1 G in IV D5W 50 ML IV SCH (21:13)
[2017-05-04] MEDS: TRAZODONE 50 MG TABLET PO SCH (21:13)
[2017-05-04] MEDS: QUETIAPINE FUMARATE 25 MG TABLET PO SCH (21:13)
[2017-05-04] MEDS: SENNOSIDES 8.6 MG TABLET PO SCH (21:13)
[2017-05-04] MEDS: ATORVASTATIN 10 MG TABLET PO SCH (21:28)
[2017-05-04] MEDS: ENOXAPARIN SODIUM 30 MG/0.3 ML DISP.SYRIN SQ SCH (21:30)
[2017-05-04 22:48] VITALS: BP 137/117
[2017-05-05 04:00] VITALS: BP 116/64
[2017-05-05] MEDS ORDERED: INSULIN REGULAR, HUMAN 100 UNIT/ML 3 ML VIAL SQ PRN (04:30)
[2017-05-05] MEDS ORDERED: DEXTROSE 50%-WATER 50 ML DISP.SYRIN IV PRN (04:30)
[2017-05-05] MEDS: TRAMADOL HCL 50 MG TABLET PO PRN ×2 (05:10→18:49)
--- NOTE | 2017-05-05 05:48 | NUR ---
MS/RN NOTES PAIN MEDICATION GIVEN FOR PATIENT DUE TO GUARDING, GRIMACE AND CRYING WHEN BEING REPOSITIONED AND CHANGED. PROVIDED COMFORT AND WARM BLANKET. WILL CONTINUE MONITORING PATIENT.
--- NOTE | 2017-05-05 06:36 | NUR ---
MS/RN CLOSING NOTES PATIENT IN HOB ELEVATED, RESTING COMFORTABLY IN BED. PROVIDED CARE AND PAIN MANAGEMENT , RESPIRATIONS EVEN AND UNLABORED. MONITORING FOR BM, TOLERATE THICKENED FLUIDS W/ PRUNE JUICE. KEPT SKIN INTACT AND DRY. WILL ENDORSE TO AM RN FOR CONTINUITY OF CARE.
[2017-05-05] MEDS ORDERED: BLOOD SUGAR DIAGNOSTIC 1 EACH STRIP IN ONE (07:30)
[2017-05-05] MEDS ORDERED: BLOOD SUGAR DIAGNOSTIC 1 EACH STRIP IN SCH ×2 (07:30)
[2017-05-05 08:00] VITALS: BP 156/70
--- NOTE | 2017-05-05 08:00 | NUR ---
MS RN NOTES PATIENT IN BED RESTING NO SOB OR ACUTE DISTRESS NOTED. PERIPHERAL IV INTACT PATENT. BED IN LOW LOCKED POSITION. CALL LIGHT WITHIN REACH. WILL CONTINUE TO MONITOR.
[2017-05-05] MEDS: BENZTROPINE MESYLATE (1 MG) 1 MG TABLET PO SCH ×2 (08:40→17:37)
[2017-05-05] MEDS: LISINOPRIL (20MG) 20 MG TABLET PO SCH (08:40)
[2017-05-05] MEDS: ASPIRIN EC 81 MG TABLET.DR PO SCH (08:40)
[2017-05-05] MEDS: CYANOCOBALAMIN 500 MCG TABLET PO SCH (08:40)
[2017-05-05] MEDS: METFORMIN 500 MG TABLET PO SCH ×2 (08:40→17:37)
[2017-05-05] MEDS: CHOLECALCIFEROL (VITAMIN D 3) 400 UNIT TABLET PO SCH (08:41)
[2017-05-05] MEDS: MEMANTINE HCL 5 MG TABLET PO SCH (08:41)
[2017-05-05] MEDS: PANTOPRAZOLE 40 MG TABLET.DR PO SCH (08:47)
[2017-05-05] MEDS: INSULIN DETEMIR 100 UNIT/ML CARTRIDGE SQ SCH (08:50)
[2017-05-05] MEDS: ACETAMINOPHEN 325 MG TABLET PO PRN (12:03)
--- NOTE | 2017-05-05 12:15 | NUR ---
MS RN NOTES PATIENT SEEN AND EVALUATED BY DR. DAVIS ORDERS NOTED AND CARRIED OUT.
[2017-05-05 16:00] VITALS: BP 141/76
--- NOTE | 2017-05-05 18:30 | NUR ---
MS RN NOTES PATIENT DISCHARGED TO SNF IN STABLE CONDITION. NO SOB OR ACUTE DISTRESS NOTED. MD AWARE OF ALL ABNORMAL LABS. DISCHARGE INSTRUCTIONS PROVIDED TO JEANNETTE RN AT SNF. ALL BELONGINGS ACCOUNTED FOR. BELONGING LIST SIGNED BY TWO RNS. ALL BELONGINGS ACCOUNTED FOR. DISCHARGE PROTOCOL FOLLOWED. REPORT GIVEN TO JEANNETTE. PATIENT TRANSPORTED BY EMT.
== END 2017-05-05 19:10 | DRG 871 ==
LOC: ER 15:50 → MED 18:08
PROVIDERS: ADMIT Internal Medicine; ATTEND Internal Medicine
DX: A41.9 Sepsis, unspecified organism (principal); G93.40 Encephalopathy, unspecified; N39.0 Urinary tract infection, site not specified; G30.9 Alzheimer's disease, unspecified; I10 Essential (primary) hypertension; E11.9 Type 2 diabetes mellitus without complications; B96.20 Unspecified Escherichia coli [E. coli] as the cause of diseases classified elsewhere; F02.80 Dementia in other diseases classified elsewhere, unspecified severity, without behavioral disturbance, psychotic disturbance, mood disturbance, and anxiety; D63.8 Anemia in other chronic diseases classified elsewhere; R62.7 Adult failure to thrive; I25.10 Atherosclerotic heart disease of native coronary artery without angina pectoris; Z87.440 Personal history of urinary (tract) infections; Z88.0 Allergy status to penicillin; R79.89 Other specified abnormal findings of blood chemistry; R53.1 Weakness; E03.9 Hypothyroidism, unspecified; E78.5 Hyperlipidemia, unspecified; Z68.21 Body mass index [BMI] 21.0-21.9, adult; Z79.84 Long term (current) use of oral hypoglycemic drugs
CPT/HCPCS: 36415; 71010-TC; 80048-TC; 80076-TC; 81000-TC; 82962-TC; 83605-TC; 83690-TC; 84484-TC; 85025-TC; 87040-TC; 87081-TC; 87086-TC; 87186-TC; 92526; 92611-TC; A4606; J0696; J1650; J1815; J1956; J2405; J7030; J7040; J7050; J7060; Q9967; Z7610

== ENCOUNTER 2017-07-04 21:56 | Inpatient (IN) | payer MEDICARE, OTHER ==
[~2017-07-04] VITALS: Ht 160 cm; Wt 53.3 kg
[~2017-07-04 21:56] MED LIST changes: +ACET-868 PO; +BENZ0.5T3 PO; +CHOL400T11 PO; +CYAN500T4 PO; -FURO-145 PO; -INSU100V10 SQ; +MEMA10TA PO; -METF10002 PO; +METF500T4 PO; +PANT40TA4 PO; +PRAV20TA4 PO; +QUET25TA PO; -SIMV40TA5 PO; +TRAM50TA2 PO; +TRAZ-144 PO
[2017-07-04 22:38] LABS: BASOPHILS % (AUTO) 0.3 % (0.0-2.0); EOSINOPHILS # (AUTO) 0.1 /CMM (0.0-0.7); EOSINOPHILS % (AUTO) 1.3 % (0.0-6.0); HEMATOCRIT 34 % (33-45); HEMOGLOBIN 11.1 g/dL (11.5-14.8); LYMPHOCYTES # (AUTO) 2.2 /CMM (0.8-4.8); LYMPHOCYTES % (AUTO) 26.9 % (20.0-44.0); MEAN CORPUSCULAR HEMOGLOBIN 29 PG (26.0-33.0); MEAN CORPUSCULAR HGB CONC 33 g/dl (31.0-36.0); MEAN CORPUSCULAR VOLUME 89 fL (82-100); MONOCYTES # (AUTO) 0.3 /CMM (0.1-1.30); NEUTROPHILS # (AUTO) 5.4 /CMM (1.8-8.9); NEUTROPHILS % (AUTO) 67.5 % (43.0-81.0); PLATELET COUNT (AUTO) 164 /CMM (150-450); RDW COEFFICIENT OF VARIATION 16.8 (11.5-15.0); RED BLOOD CELL COUNT(AUTO) 3.84 MIL/uL (4.0-5.2)
[2017-07-04 22:58] LABS: INR 0.99 (0.87-1.13); PROTHROMBIN TIME 10.3 SECS (9.5-12.7)
[2017-07-04 23:04] LABS: TROPONIN I < 0.017 ng/mL (0.00-0.056)
[2017-07-04 23:06] LABS: ALANINE AMINOTRANSFERASE 18 U/L (12-78); ALBUMIN 3.3 g/dL (3.4-5.0); ALKALINE PHOSPHATASE 103 U/L (46-116); ASPARTATE AMINOTRANSFERASE 14 U/L (15-37); B-TYPE NATRIURETIC PEPTIDE 1507 PG/ML (0-125); BILIRUBIN,TOTAL 0.2 mg/dL (0.2-1.0); CALCIUM, SERUM 9.8 mg/dL (8.5-10.1); CARBON DIOXIDE 27 mmol/L (21-32); CHLORIDE 98 mmol/L (98-107); CREATININE 1.1 mg/dL (0.6-1.3); POTASSIUM 4.9 mmol/L (3.5-5.1); SODIUM SERUM 134 mmol/L (136-145); TOTAL PROTEIN, SERUM 7.5 g/dL (6.4-8.2); UREA NITROGEN, BLOOD 18 mg/dL (7-18)
[2017-07-04 23:13] LABS: GLUCOSE 540 mg/dL (74-106)
--- NOTE | 2017-07-04 23:25 | NUR ---
CALLED DR GALLARDO ANSWERING SERVICE, LEFT A MESSAGE FOR MEETING MANAGER
[2017-07-04] MEDS ORDERED: INSULIN REGULAR, HUMAN 100 UNIT/ML 3 ML VIAL IV ONE (23:30)
[2017-07-04] MEDS ORDERED: INSULIN REGULAR, HUMAN 100 UNIT/ML 10 ML VIAL ONE (23:32)
[2017-07-04] MEDS ORDERED: ATOR10TA PO (23:55)
[2017-07-04] MEDS ORDERED: ENOX40DI SQ (23:55)
[2017-07-04] MEDS ORDERED: INSU100V10 SQ (23:55)
[2017-07-04] MEDS ORDERED: ONDA4TAB5 PO (23:55)
--- NOTE | 2017-07-05 | NUR ---
MARTINE CARRION SPOKE TO DR. DAVIS ADMISSION ORDERS RECEIVED.
--- NOTE | 2017-07-05 00:14 | NUR ---
REPORT CALLED TO AIRSET CASTERSHAGGY BETANCURPORT PT VIA ACLS PROTOCOL.
[2017-07-05 00:30] VITALS: BP 143/72
--- NOTE | 2017-07-05 00:30 | NUR ---
HANDS HANGER OPENING NOTES: RECEIVED PT FROM ED. WAS ENDORSED FROM ED NURSE, ED THAT PT GOT 10 UNITS OF INSULIN TO COVER THE 540 BLOOD SUGAR. PT IS A/OX2-3 AND IS FINNISH SPEAKING ONLY. PT CAN UNDERSTAND A LITTLE BIT OF SERBIAN. PT DENIES ANY PAIN. PT ON TELE BOX. PT HAS IV ON L WRIST 18G AND IS PATENT AND INTACT. PT CURRENTLY SALINE LOCK. BREATHING EVEN AND UNLABORED. CALL LIGHT WITHIN PT'S REACH. BED KEPT IN SEMI-PLUMMER'S POSITION. BED KEPT IN LOW, LOCKED POSITION, AND SIDE RAILS X 2 UP. WILL CONTINUE TO MONITOR PT.
[2017-07-05] MEDS ORDERED: FUROSEMIDE 20 MG/2 ML VIAL ONE (01:27)
[2017-07-05] MEDS ORDERED: DEXTROSE 50%-WATER 50 ML DISP.SYRIN IV PRN (01:30)
[2017-07-05] MEDS: FUROSEMIDE 20 MG/2 ML VIAL IVP SCH ×3 (01:35→21:41)
--- NOTE | 2017-07-05 01:35 | NUR ---
WINK CUTTER OPERATOR NOTE: ADMINISTERED LASIX 20MG VIA IV. MED WAS OVERRIDDEN BY CHARGE NURSE.
--- NOTE | 2017-07-05 01:57 | NUR ---
COGNOS LEAD NOTE: CALLED OPERATIONS CLERK FOR DR. DAVIS ([place]). LEFT MESSAGE IN REGARDS TO LACTIC ACID BEING 3.3 ; AWAITING FOR CALL BACK.
--- NOTE | 2017-07-05 02:59 | NUR ---
PROJECT ACCOUNT MANAGER NOTES: CALLED [phone] YONG GORDON FILM CUTTER FOR [address]. DAVIS. NO RESPONSE AGAIN. LEFT VOICEMAIL IN REGARDS TO LACTIC ACID BEING 3.3 AND GIVING LASIX 20MG IVP ORDERED. AWAITING FOR CALL BACK. CHARGE NURSE AWARE WELL.
--- NOTE | 2017-07-05 03:54 | NUR ---
TURRET PUNCH PRESS OPERATOR NOTES: LEFT VOICEMAIL ON DR. DAVIS'S CELL PHONE [phone] IN REGARDS TO LACTIC ACID. CHARGE NURSE AWARE WELL. AWAITING FOR CALL BACK.
[2017-07-05 04:00] VITALS: BP 135/69
--- NOTE | 2017-07-05 04:30 | NUR ---
VESSEL MANAGER NOTES: INFORMED CHARGE NURSE THAT NO CALL BACKS WERE MADE AFTER LEAVING 3 VOICEMAILS. WAS ADVISED TO DRAW ANOTHER LACTIC ACID ALONG WITH SCHEDULED TROPONIN.
[2017-07-05] MEDS: BLOOD SUGAR DIAGNOSTIC 1 EACH STRIP IN SCH ×4 (06:09→22:31)
[2017-07-05] MEDS: INSULIN ASPART HUMALOG/NOVOLOG 100 UNIT/ML CARTRIDGE SQ PRN ×4 (06:27→22:33)
--- NOTE | 2017-07-05 06:34 | NUR ---
PRODUCTION BROACHER NOTES: BLOOD SUGAR THIS AM WAS 240. 4 UNITS OF NOVOLOG WAS ADMINISTERED. SNACK WAS PROVIDED. ALSO HAD TO MANUALLY ADMINISTERED D/T USING ANOTHER NOVOLOG ON THE FLOOR. CHARGE NURSE AWARE. WILL CONTINUE TO MONITOR PT.
--- NOTE | 2017-07-05 07:25 | NUR ---
CHIP APPLYING MACHINE TENDER CLOSING NOTES: ALL NEEDS WERE ATTENDED AND ANTICIPATED FOR. PT RESTING IN BED COMFORTABLY WATCHING TELEVISION. PT IS A/OX2-3 AND IS BURKINAN SPEAKING ONLY. PT CAN UNDERSTAND A LITTLE BIT OF CROATIAN. PT DENIES ANY PAIN. PT ON TELE BOX. READING SHOWED SB-SR WITH PACS AND INVERTED T WAVE DURING MY SHIFT. PT HAS IV ON L WRIST 18G AND IS PATENT AND INTACT. PT CURRENTLY SALINE LOCK. BREATHING EVEN AND UNLABORED. CALL LIGHT WITHIN PT'S REACH. BED KEPT IN SEMI-PLUMMER'S POSITION. BED KEPT IN LOW, LOCKED POSITION, AND SIDE RAILS X 2 UP. ENDORSED TO AM NURSE FOR TOBIAS.
[2017-07-05 08:00] VITALS: BP 123/72
[2017-07-05] MEDS ORDERED: TRAMADOL HCL 50 MG TABLET PO PRN (10:00)
[2017-07-05] MEDS ORDERED: ONDANSETRON 4 MG TAB.RAPDIS SL PRN (10:00)
[2017-07-05] MEDS: ENOXAPARIN SODIUM 40 MG/0.4 ML DISP.SYRIN SQ SCH (11:00)
--- NOTE | 2017-07-05 12:00 | NUR ---
dr. marshall in to see pt. cooperative and med compliant.
[2017-07-05 16:00] VITALS: BP 120/68
[2017-07-05] MEDS: BENZTROPINE MESYLATE (1 MG) 1 MG TABLET PO SCH (17:38)
[2017-07-05] MEDS: ATORVASTATIN 10 MG TABLET PO SCH (17:40)
--- NOTE | 2017-07-05 18:00 | NUR ---
NO CHANGE IN STATUS.DR. DAVIS IN TO SEE PT.
--- NOTE | 2017-07-05 18:58 | NUR ---
JUST MEDICATED FOR NAUSEA SHORTLY AFTER STARTING HER DINNER. Addendum: 07/05/17 at 1901 by KATERINA DELUCA RN ABOVE NOTE INCORRECT,MEAN'T FOR DIFFERENT PT.
--- NOTE | 2017-07-05 19:45 | NUR ---
AGRICULTURAL EQUIPMENT OPERATOR OPENING NOTES RECEIVED PT IN BED, SMILING, TALKATIVE. A/O X 2-3 AND IS VIETNAMESE SPEAKING BUT CAN UNDERSTAND A LITTLE BIT OF PASHTO. PT DENIES ANY PAIN. PT ON TELE MONITORING WITH SR 64. PT HAS IV ON L WRIST, IS PATENT AND INTACT. PT CURRENTLY SALINE LOCK. BREATHING EVEN AND UNLABORED. CALL LIGHT WITHIN PT'S REACH. BED IN SEMI-PLUMMER'S POSITION. BED IN LOW, LOCKED POSITION, AND SIDE RAILS X 2 UP. WILL CONTINUE TO MONITOR PT.
[2017-07-05 20:00] VITALS: BP 115/71
[2017-07-05] MEDS ORDERED: INSULIN DETEMIR 100 UNIT/ML CARTRIDGE SQ SCH (22:00)
[2017-07-05] MEDS: QUETIAPINE FUMARATE 25 MG TABLET PO SCH (22:31)
[2017-07-05] MEDS: SENNOSIDES 8.6 MG TABLET PO SCH (22:31)
[2017-07-05] MEDS: TRAZODONE 50 MG TABLET PO SCH (22:31)
[2017-07-06] VITALS: BP 118/68
[2017-07-06 04:00] VITALS: BP 118/74
--- NOTE | 2017-07-06 06:55 | NUR ---
MORTICIAN INVESTIGATOR CLOSING NOTES PATIENT SLEPT WELL @ NIGHT. NO ACUTE DISTRESS, NO SOB, NO S/S OF PAIN NOTED. ON TELE MONITORING WITH SR WITH LOWER T WAVE & PAC'S & PVC'S. ALL NEEDS MET. IV ACCESS TO LEFT WRIST, INTACT PATENT. BED IN LOW LOCKED POSITION. CALL LIGHT WITHIN REACH. WILL ENDORSE TO AM RN FOR CONTINUITY OF CARE.
--- NOTE | 2017-07-06 07:00 | NUR ---
RN NOTES: PATIENT RESTING IN BED. NONLABORED BREATHING NOTED ON ROOM AIR. NO SIGNS OF DISTRESS. PATIENT REFUSING TO HAVE BLOOD DRAWN, STATING "LEAVE ME ALONE" IN [place]. PATIENT ALSO STATES WANTING TO REST. BED IN LOWEST LOCKED POSITION. CALL LIGHT WITHIN REACH. PATIENT AOX2. WILL CONTINUE TO MONITOR
[2017-07-06] MEDS: BLOOD SUGAR DIAGNOSTIC 1 EACH STRIP IN SCH ×4 (07:26→22:10)
--- NOTE | 2017-07-06 07:30 | NUR ---
REFUSED INSULIN PT REFUSED INSULIN. BENEFITS & RISKS WERE EXPLAINED. PT DOESN'T WANT TO EAT @ THIS TIME. ENDORSED TO AM RN.
[2017-07-06] MEDS ORDERED: CYANOCOBALAMIN 500 MCG TABLET PO SCH (09:00)
[2017-07-06] MEDS: LISINOPRIL (20MG) 20 MG TABLET PO SCH (09:00)
[2017-07-06] MEDS: PANTOPRAZOLE 40 MG TABLET.DR PO SCH (10:29)
[2017-07-06 10:30] VITALS: BP 102/65
[2017-07-06] MEDS: CHOLECALCIFEROL (VITAMIN D 3) 400 UNIT TABLET PO SCH (10:31)
[2017-07-06] MEDS: ASPIRIN EC 81 MG TABLET.DR PO SCH (10:32)
[2017-07-06] MEDS: MEMANTINE HCL 5 MG TABLET PO SCH (10:32)
[2017-07-06] MEDS: BENZTROPINE MESYLATE (1 MG) 1 MG TABLET PO SCH ×2 (10:32→16:17)
[2017-07-06] MEDS: FUROSEMIDE 20 MG/2 ML VIAL IVP SCH ×2 (10:34→21:22)
[2017-07-06] MEDS: INSULIN ASPART HUMALOG/NOVOLOG 100 UNIT/ML CARTRIDGE SQ PRN ×3 (12:31→22:16)
[2017-07-06] MEDS: ENOXAPARIN SODIUM 40 MG/0.4 ML DISP.SYRIN SQ SCH (12:37)
--- NOTE | 2017-07-06 13:00 | NUR ---
RN NOTES: PATIENT INITIALLY REFUSED MORNING MEDICATIOS AND VITALS TO BE ASSESSED,. BENFITS AND RISKS EXPLAINED. PATIENT LATER ACCEPTED TO TAKE MEDICATIONS AND EAT. DR DAVIS INFORMED OF THIS. PATIENT DENIES PAIN. WILL CONTINUE TO MONITOR
[2017-07-06 16:00] VITALS: BP 138/77
[2017-07-06] MEDS: ATORVASTATIN 10 MG TABLET PO SCH (17:11)
--- NOTE | 2017-07-06 19:15 | NUR ---
RN NOTES: PATIENT RESTING IN BED. NO SIGNS OF DISTRESS NOTED. PATIENT AO2 WITH PERIODS OF CONFUSION. IV SITE PATENT AND INTACT. PATIENT STATES "NO" WHEN ASKED "TIENE DOLOR?" PATIENT TOLERATED DIET WELL TODAY. NO SOB ON ROOM AIR. DURING SHIFT ENCOURAGED TO TURN AND REPOSITION EVERY 2 HOURS. BED IN LOWEST LOCKED POSITION. CALL LIGHT WITHIN REACH. ENDORSED TO NEXT SHIFT
--- NOTE | 2017-07-06 19:40 | NUR ---
MS RN OPENING NOTES RECEIVED PT IN BED, SMILING, TALKATIVE. A/O X 2-3 AND IS PALAUAN SPEAKING BUT CAN UNDERSTAND A LITTLE BIT OF ITALIAN. PT DENIES ANY PAIN. PT HAS IV ON L WRIST, PATENT AND INTACT. PT CURRENTLY SALINE LOCK. BREATHING EVEN AND UNLABORED. CALL LIGHT WITHIN PT'S REACH. BED IN SEMI-PLUMMER'S POSITION. BED IN LOW, LOCKED POSITION, AND SIDE RAILS X 2 UP. WILL CONTINUE TO MONITOR PT.
[2017-07-06 20:00] VITALS: BP 117/65
[2017-07-06 20:31] VITALS: BP 117/65
[2017-07-06] MEDS: TRAZODONE 50 MG TABLET PO SCH (22:10)
[2017-07-06] MEDS: SENNOSIDES 8.6 MG TABLET PO SCH (22:10)
[2017-07-06] MEDS: QUETIAPINE FUMARATE 25 MG TABLET PO SCH (22:10)
[2017-07-06] MEDS: INSULIN DETEMIR 100 UNIT/ML CARTRIDGE SQ SCH (22:14)
[2017-07-07] MEDS: BLOOD SUGAR DIAGNOSTIC 1 EACH STRIP IN SCH ×4 (07:19→21:41)
--- NOTE | 2017-07-07 07:20 | NUR ---
SLIDING SCALE INSULIN NOT GIVEN YET, PT REFUSES TO EAT @ TIMES UNTIL LATE MORNING. ENDORSED TO AM RN TO GIVE INSULIN ONCE PT RECEIVES HER MEAL TRAY & AGREES TO EAT TO PREVENT HYPOGLYCEMIA.
--- NOTE | 2017-07-07 07:24 | NUR ---
MS RN CLOSING NOTES RECEIVED SLEPT WELL @ NIGHT. A/O X 2-3 AND IS MALTESE SPEAKING BUT CAN UNDERSTAND A LITTLE BIT OF UZBEK. PT DENIES ANY PAIN. PT HAS IV ON L WRIST, PATENT AND INTACT. PT CURRENTLY SALINE LOCK. BREATHING EVEN AND UNLABORED. CALL LIGHT WITHIN PT'S REACH. BED IN SEMI-PLUMMER'S POSITION. BED IN LOW, LOCKED POSITION, AND SIDE RAILS X 2 UP. WILL ENDORSE TO AM RN.
[2017-07-07 07:32] LABS: B-TYPE NATRIURETIC PEPTIDE 190 PG/ML (0-125); CARBON DIOXIDE 28 mmol/L (21-32); CHLORIDE 100 mmol/L (98-107); CREATININE 1.3 mg/dL (0.6-1.3); GLUCOSE 210 mg/dL (74-106); POTASSIUM 3.8 mmol/L (3.5-5.1); SODIUM SERUM 137 mmol/L (136-145); UREA NITROGEN, BLOOD 30 mg/dL (7-18)
[2017-07-07] MEDS: PANTOPRAZOLE 40 MG TABLET.DR PO SCH (07:37)
[2017-07-07] MEDS: ACETAMINOPHEN 325 MG TABLET PO PRN (07:37)
--- NOTE | 2017-07-07 07:39 | NUR ---
MS RN OPENING NOTES. RECEIVED PT A&0X2-3, TURKISH SPEAKING, AWAKE IN BED WITH COMPLAINTS OF MODERATE GENERALIZED BODY AND ABDOMINAL PAIN - TYLENOL ADMINISTERED. PT TOLERATING ROOM AIR WITH NO SOB. PT WITH IVC AT LEFT WRIST INTACT AND S/L. ENDORSED FROM NIGHT NURSE TO HOLD AM INSULIN UNTIL PT WITNESSED EATING REPORTEDLY OFTEN SKIPS BREAKFAST. BED IN LOWEST LOCKED POSITION WITH HANDRAILSX4 AND CALL BLOCK WITHIN REACH, BED ALARM ENGAGED. PT BRIEFED ON TODAY'S POC, WILL CONTINUE TO MONITOR.
[2017-07-07 08:00] VITALS: BP 115/62
--- NOTE | 2017-07-07 09:15 | NUR ---
RN NOTES. PT IVC INFILTRATED. WILL HOLD IV MEDS UNTIL REPLACED. VERY HARD STICK, SENIOR RN REQUESTED FOR ASSISTANCE.
[2017-07-07] MEDS: ASPIRIN EC 81 MG TABLET.DR PO SCH (09:26)
[2017-07-07] MEDS: LISINOPRIL (20MG) 20 MG TABLET PO SCH (09:27)
[2017-07-07] MEDS: MEMANTINE HCL 5 MG TABLET PO SCH (09:27)
[2017-07-07] MEDS: BENZTROPINE MESYLATE (1 MG) 1 MG TABLET PO SCH ×2 (09:28→17:51)
[2017-07-07] MEDS: CHOLECALCIFEROL (VITAMIN D 3) 400 UNIT TABLET PO SCH (09:29)
--- NOTE | 2017-07-07 09:53 | NUR ---
RN NOTES. PHARMACY CONTACTED REGARDING CHANGE OF ENOXAPARIN SYRINGE FROM 40MG-30MG PRESCRIBED AND PO IRON CHANGED TO ADMINISTRABLE AMOUNT.
[2017-07-07] MEDS: CYANOCOBALAMIN 100 MCG TABLET PO SCH (10:11)
[2017-07-07] MEDS: INSULIN DETEMIR 100 UNIT/ML CARTRIDGE SQ SCH ×2 (10:19→21:36)
[2017-07-07] MEDS: ENOXAPARIN SODIUM 30 MG/0.3 ML DISP.SYRIN SQ SCH (10:20)
--- NOTE | 2017-07-07 10:34 | NUR ---
RN NOTES. IVC REPLACED, CURRENTLY INTACT AND OPERATIONAL AT RIGHT HAND G#24. PREVIOUS IVC REMOVED.
[2017-07-07] MEDS: FUROSEMIDE 20 MG/2 ML VIAL IVP SCH ×2 (10:36→20:55)
[2017-07-07] MEDS: INSULIN ASPART HUMALOG/NOVOLOG 100 UNIT/ML CARTRIDGE SQ PRN ×3 (12:57→21:38)
[2017-07-07 16:00] VITALS: BP 110/52
[2017-07-07] MEDS: ATORVASTATIN 10 MG TABLET PO SCH (17:51)
--- NOTE | 2017-07-07 19:19 | NUR ---
MS RN CLOSING NOTES. PT A&0X2, HEBREW SPEAKING. PT TOLERATING ROOM AIR WITH NO SOB. PT REPORTING NO PAIN. PT WITH IVC G22 AT RIGHT HAND INTACT AND S/L. BED IN LOWEST LOCKED POSITION WITH HANDRAILSX2 AND CALL BLOCK WITHIN REACH. ALL DAY NURSE DUTIES COMPLETE, WILL ENDORSE TO NIGHT NURSE.
--- NOTE | 2017-07-07 19:35 | NUR ---
MS RN OPENING NOTES RECEIVED PT IN BED ALERT, AWAKE, VERBALLY RESPONSIVE, ON ROOM AIR NO SOB, NO APPARENT DISTRESS NOTED,RESPIRATIONS EVEN, UNLABORED. DENIES ANY PAIN OR DISCOMFORT AT THIS TIME. IV SITE RT HAND INTACT, PATENT. KEPT CLEAN AND COMFORTABLE, ATTENDED ALL NEEDS.WILL CONTINUE TO MONITOR ACCORDINGLY.
[2017-07-07] MEDS: CARVEDILOL 3.125 MG TABLET PO SCH (20:54)
[2017-07-07] MEDS: TRAZODONE 50 MG TABLET PO SCH (21:21)
[2017-07-07] MEDS: SENNOSIDES 8.6 MG TABLET PO SCH (21:22)
[2017-07-07] MEDS: QUETIAPINE FUMARATE 25 MG TABLET PO SCH (21:23)
[2017-07-07 22:00] VITALS: BP 116/68
--- NOTE | 2017-07-08 06:38 | NUR ---
MS RN CLOSING NOTES PT IN BED ASLEEP,ON ROOM AIR,NO SOB,NO APPARENT DISTRESS NOTED.NO S/SX OF PAIN OR DISCOMFORT NOTED.CALL LIGHT WITHIN REACH.KEPT CLEAN AND COMFORTABLE.ATTENDED ALL NEEDS.WILL CONTINUE TO MONITOR ACCORDINGLY
--- NOTE | 2017-07-08 06:53 | NUR ---
MS RN NOTES PT REFUSED BLOOD GLUCOSE TO BE CHECKED.OFFERED X3,EXPLAINED BENEFITS, STILL REFUSING.WILL CONTINUE TO MONITOR.ENDORSED TO THE DAY SHIFT
[2017-07-08] MEDS: BLOOD SUGAR DIAGNOSTIC 1 EACH STRIP IN SCH ×2 (07:35→11:56)
[2017-07-08] MEDS: PANTOPRAZOLE 40 MG TABLET.DR PO SCH (07:36)
[2017-07-08 08:00] VITALS: BP 96/63
--- NOTE | 2017-07-08 08:20 | NUR ---
MS RN OPENING NOTE. RECEIVED PT A&0X2. PT TOLERATING ROOM AIR WITH NO SOB SAO2 96% WITH RA. PT REPORTING NO PAIN. PT WITH IVC AT RIGHT WRIST FLUSHED PATENT AND SL. PT BRIEFED ON TODAY'S POC AND IS WITHOUT CONCERN OR COMPLAINT AT THIS TIME.
[2017-07-08] MEDS: LISINOPRIL (20MG) 20 MG TABLET PO SCH (09:00)
[2017-07-08] MEDS: CARVEDILOL 3.125 MG TABLET PO SCH (09:00)
[2017-07-08] MEDS: INSULIN DETEMIR 100 UNIT/ML CARTRIDGE SQ SCH (09:00)
[2017-07-08] MEDS: MEMANTINE HCL 5 MG TABLET PO SCH (09:14)
[2017-07-08] MEDS: CHOLECALCIFEROL (VITAMIN D 3) 400 UNIT TABLET PO SCH (09:15)
[2017-07-08] MEDS: CYANOCOBALAMIN 100 MCG TABLET PO SCH (09:15)
[2017-07-08] MEDS: BENZTROPINE MESYLATE (1 MG) 1 MG TABLET PO SCH (09:16)
[2017-07-08] MEDS: ASPIRIN EC 81 MG TABLET.DR PO SCH (09:16)
[2017-07-08] MEDS: FUROSEMIDE 20 MG/2 ML VIAL IVP SCH (09:18)
[2017-07-08] MEDS: ENOXAPARIN SODIUM 30 MG/0.3 ML DISP.SYRIN SQ SCH (09:29)
[2017-07-08] MEDS: INSULIN ASPART HUMALOG/NOVOLOG 100 UNIT/ML CARTRIDGE SQ PRN ×2 (09:36→12:00)
[2017-07-08 10:00] VITALS: BP 96/63
--- NOTE | 2017-07-08 10:19 | NUR ---
RN NOTES. INSULIN BARCODE INCOORECT. PHARMACY NOTIFIED AND WILL CHANGE.
--- NOTE | 2017-07-08 14:36 | NUR ---
RN NOTES. PT ENDORSED TO ISAIAH AT [facility] AT 1430. [phone]. PT'S DAUGHTER INFORMED.
[2017-07-08] MEDS: ACETAMINOPHEN 325 MG TABLET PO PRN (15:14)
--- NOTE | 2017-07-08 15:45 | NUR ---
MS RN CLOSING NOTES PT A&0X2, OMANI SPEAKING WITH SOME CONFUSION. PT TOLERATING ROOM AIR WITH NO SOB. REPORTING MINOR NECK PAIN TREATED WITH TYLENOL. PT IVC REMOVED AND NAD AT SITE. PT SKIN OCCURRENCES RE-PHOTOGRAPHED. PT BRIEFED ON SO D/C PACKET AND CONTENTS, PT WITH ALL BELONGINGS AND DOCUMENTS SIGNED BY RNX2. ISAIAH AT [facility] ENDORSED AT 1430. PT'S DAUGHTER INFORMED. EMT TRANSPORT ENDORSED. PT WITHOUT CONCERN OF COMPLAINT AT THIS TIME.
== END 2017-07-08 15:15 | DRG 291 ==
LOC: ER 21:57 → MED 07-05 00:05 → TELE 07-05 00:33 → MED 07-06 11:00
PROVIDERS: ADMIT Nurse Practitioner Primary Care; ATTEND Internal Medicine
DX: I11.0 Hypertensive heart disease with heart failure (principal); G93.40 Encephalopathy, unspecified; E87.2 Acidosis; E11.65 Type 2 diabetes mellitus with hyperglycemia; R64 Cachexia; D63.8 Anemia in other chronic diseases classified elsewhere; G30.9 Alzheimer's disease, unspecified; F02.80 Dementia in other diseases classified elsewhere, unspecified severity, without behavioral disturbance, psychotic disturbance, mood disturbance, and anxiety; E03.9 Hypothyroidism, unspecified; E78.5 Hyperlipidemia, unspecified; I25.10 Atherosclerotic heart disease of native coronary artery without angina pectoris; Z79.4 Long term (current) use of insulin; I50.33 Acute on chronic diastolic (congestive) heart failure; Z68.20 Body mass index [BMI] 20.0-20.9, adult
CPT/HCPCS: 36415; 71010-TC; 80048-TC; 80076-TC; 82962-TC; 83605-TC; 83880; 84484-TC; 85025-TC; 85730-TC; 87040-TC; 93307-TC; A4606; J1650; J1815; J1940; Z7610